=== PATIENT | female | born 2005 | race Caucasian/White ===

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

== ENCOUNTER 2024-02-08 16:50 | Emergency (ER) | payer OTHER ==
[2024-02-08 17:06] VITALS: BP 139/78; PULSE 74; RESP 18; TEMP 98.8; BMI 23.3
[2024-02-08] MEDS ORDERED: DEXAMETHASONE SOD PHOSPHATE 10 MG/1 ML VIAL ONE ×2 (17:29→17:30)
[2024-02-08] MEDS ORDERED: LORATADINE 10 MG TABLET ONE (17:29)
[2024-02-08] MEDS ORDERED: FAMOTIDINE 20 MG TABLET ONE (17:29)
[2024-02-08] MEDS: FAMOTIDINE 20 MG TABLET PO ONE (17:42)
[2024-02-08] MEDS: DEXAMETHASONE SOD PHOSPHATE 10 MG/1 ML VIAL IM ONE (17:42)
[2024-02-08] MEDS: LORATADINE 10 MG TABLET PO ONE (17:42)
== END 2024-02-08 17:48 | disposition home or self-care (01) ==
LOC: JERFT 16:50
PROC: 3E023GC Introduction of Other Therapeutic Substance into Muscle, Percutaneous Approach (ICD-10-PCS; principal; 2024-02-08)
DX: T78.40XA Allergy, unspecified, initial encounter (principal); R21 Rash and other nonspecific skin eruption; L29.9 Pruritus, unspecified
CPT/HCPCS: 99284-25; J1100